=== PATIENT | female | born 1980 | race Caucasian/White ===

== ENCOUNTER 2017-06-21 04:50 | Inpatient (IN) | payer SELFPAY ==
[2017-06-21] VITALS (21 sets, daily range): BP systolic 94–115; BP diastolic 47–78; PULSE 60–92; RESP 16–20; TEMP 36.3–36.7; O2SAT 95–100; BMI 28.5
[2017-06-21] MEDS: Lactated Ringers 1,000 ML 999 ML IV (05:20)
[2017-06-21 05:50] LABS: Hematocrit 34.2 % (37-47); Hemoglobin 11.6 g/dl (12.0-15.0); Mean Corp Hgb Conc 33.9 g/gl (32-36); Mean Corpuscular Hgb 30.4 pg (27.0-32.0); Mean Corpuscular Volume 89.8 fL (81-99); Mean Platelet Vol. 11.6 fl (6.2-12.0); Platelet Count 169 K/mm3 (150-450); Red Blood Count 3.81 M/mm3 (4.2-5.4); White Blood Count 6.9 K/mm3 (4.4-11.0)
[2017-06-21 05:54] LABS: Scan Indicated on CBC? Y/N NO
[2017-06-21 05:57] LABS: Partial Thromboplast Time 29.3 Seconds (24.1-36.2); Prothrombin Time (Protime)PT. 12.9 SECONDS (11.7-14.9)
[2017-06-21] MEDS: Lactated Ringers 1,000 ML 150 ML IV (06:18)
[2017-06-21] MEDS: Sodium Citrate/Citric Acid 30 ML UDC PO (07:08)
[2017-06-21] MEDS: Cefazolin 2 GM in 0.9% Normal Saline 100 ML IV (07:09)
[2017-06-21] MEDS: Oxytocin 30 units/NS 500 ml 30 UNITS/500 ML IV.SOLN 167 UNITS IV (07:45)
--- NOTE | 2017-06-21 08:26 | PCM.OP.BLANK ---
Operative Report Date of Procedure: 06/21/17 Surgeon: Kaz Burns MD, FACOG [employer]ist Dyer: TRIPP Martel Anesthesia: Helena Cowart CRNA Anesthesia: Spinal with Duramorph Pre-op Diagnosis: - -Prior Section, Moderate Oligohydramnios Post-Op Diagnosis: - -Prior Section, Moderate Oligohydramnios Procedure: Repeat Low Transverse Cervical Caesarean Section Findings: Viable female infant with Apgars of 9/9 in an occiput anterior presentation with clear amniotic fluid and normal three-vessel placenta. Indication: This is a 36-year-old who presents for her at 38 6/7 weeks gestation. care has otherwise been uneventful except for recent moderate oligohydramnios. Given this, it was decided to proceed with repeat at this gestation. The patient has been counseled regarding the risk and indications of this procedure including the possibility of bleeding infection and injury to surrounding structures such as bowel bladder. All questions were answered. Procedure: Patient was taken to the operating room where after spinal anesthesia was placed, the patient was prepped and draped in usual sterile fashion and a Marroquin catheter was placed. The abdomen was entered through the patient's prior Pfannenstiel incision and peritoneum was entered bluntly. After developing a bladder flap on the lower uterine segment a low transverse incision was made on the uterus and head was easily delivered onto the operative field the nose mouth and oropharynx were bulb suctioned. Subsequently a viable female infant was born with Apgars of 9/9. The was noted to cry move all extremities vigorously on the operative field. The umbilical cord was doubly clamped and ligated and infant handed to the nursery personnel who were present for the delivery. Placenta was delivered and noted to be 3 vessels and normal. Uterus was exteriorized remaining placental tissue was removed. The uterus was then closed in 2 layers first with running locked Number 1 Vicryl suture followed by a second imbricating layer with Number 1 Vicryl suture. Number 1 Vicryl suture was then used in a horizontal mattress interrupted fashion to affect final hemostasis of the uterine incision line. Normal fallopian tubes and ovaries were visualized and the uterus was returned to the pelvis. Hemostasis was noted and rectus abdominis muscles were reapproximated in the midline with interrupted Number 1 Vicryl suture in a horizontal mattress fashion. Fascia was closed with running Number 1 loop PDS suture. Subcutaneous tissue was closed with running 3-0 Vicryl suture and skin was closed with 4-0 monocryl suture in a running subcuticular fashion. Steri strips, telfa, and tape were placed across the incision. The patient tolerated the procedure well and was taken to the recovery room in satisfactory condition. Sponge, needle, and instrument counts were all reportedly correct. EBL was less than 500 cc. Ancef 2 gms IV was given prior to the procedure. Spicemen to Pathology: None Complications: None
--- NOTE | 2017-06-21 08:30 | DCINST_ITS ---
Discharge Diet: No Restrictions Discharge Activity: May not drive while taking narcotic pain medications., May Shower, May Take a Tub Bath May resume sexual activity in: 4-6 weeks Lifting Restrictions: 20 pounds Additional Activity Instructions:: Nothing in the vagina for 4-6 weeks. You may return to work/school in 6 weeks. Call your doctor if your incision/area has: Continuous Slow Oozing, Sudden Increased Bleeding, Increased Pain/ Swelling, Increased Redness, Foul Smelling Discharge Call your doctor if you observe: Fever of 101 or Higher, Inability to urinate, Inability to have a bowel movement, Using more than one pad per hour Additional Instructions: If you experience any of the following, contact your healthcare provider. * Bleeding that soaks a pad every hour for 2 hours * Unrelieved incision or abdominal pain * Swelling, redness, discharge or bleeding from your incision or episiotomy site * Your incision begins to separate * Problems urinating (including inability to urinate or burning while urinating) . * Visual changes * Severe headache * Flu-like symptoms * Pain or redness in one of both of your breasts * Pain, warmth, tenderness or swelling in your legs, especially the calf area * Frequent nausea and vomiting * Symptoms of depression or anxiety If you experience any of the following, call 911 or go to the nearest Emergency Room. * Chest pain * Problems breathing * Seizure activity * Partial or complete paralysis of a body part, slurred speech, weakness or drooping of the face, or a sudden inability to walk or hold your balance Allergies/Adverse Reactions: Allergies No Known Allergies Allergy (Verified 06/21/17 05:11) Medications to take at Discharge Docusate Sodium [Colace] 100 mg PO BID PRN PRN #60 cap 06/21/17 Oxycodone [Oxyir] 5 - 10 mg PO Q6H PRN PRN 7 Days #25 tab 06/21/17 The following prescriptions were given: Oxycodone [Oxyir] 5 - 10 mg PO Q6H PRN PRN 7 Days #25 tab PRN Reason: Severe Pain () Docusate Sodium [Colace] 100 mg PO BID PRN PRN #60 cap PRN Reason: Constipation Follow-Up: Call to make an appointment with your doctor for an incision check in 1-2 weeks. You will also need a 6 week post- follow up appointment. Please Follow Up With: Kaz Burns MD - [phone] When: Call to make an appointment for an incision check in 2 weeks. Primary Care Physician: Kaz Ruano [Primary Care Provider] -
[2017-06-21] MEDS: Lactated Ringers 1,000 ML 100 ML IV ×2 (09:41→17:51)
--- NOTE | 2017-06-21 10:31 | CPS ---
nursing to start
[2017-06-21] MEDS: Ketorolac 30 MG/ML Syringe IV ×2 (14:03→20:10)
[2017-06-21] MEDS: Cefazolin 1 GM/50 ML BAG IV ×2 (15:07→22:55)
[2017-06-22] VITALS: BP 104/68; PULSE 76; RESP 16; TEMP 37.2; O2SAT 94
[2017-06-22 02:00] VITALS: PULSE 76; RESP 16; O2SAT 94
[2017-06-22] MEDS: Ketorolac 30 MG/ML Syringe IV ×4 (03:24→20:30)
[2017-06-22 04:00] VITALS: BP 96/59; PULSE 62; RESP 16; TEMP 36.6; O2SAT 97
[2017-06-22 05:29] LABS: Hematocrit 32.6 % (37-47); Hemoglobin 10.9 g/dl (12.0-15.0); Mean Corp Hgb Conc 33.4 g/gl (32-36); Mean Corpuscular Hgb 30.5 pg (27.0-32.0); Mean Corpuscular Volume 91.3 fL (81-99); Mean Platelet Vol. 11.2 fl (6.2-12.0); Platelet Count 145 K/mm3 (150-450); RBC Distribution Width SD 45.1 fl (35.1-43.9); Red Blood Count 3.57 M/mm3 (4.2-5.4); Scan Indicated on CBC? Y/N NO; White Blood Count 11.2 K/mm3 (4.4-11.0)
--- NOTE | 2017-06-22 07:28 | PCM.PN.OB ---
Subjective: No specific complaints. Breast feeding. Pain reasonably controlled. Bleeding light. Objective: Afeb VSS. Hgb appropriate. urine output adequate. - Physical Exam General: Alert, Oriented x3, Cooperative, No apparent distress Lungs: Clear to auscultation, Normal air movement Cardiovascular: Regular rate, Regular Rhythm Abdomen: Soft, Non Tender, Non-Distended, - - Fundus firm/nontender. Incision dressing dry Extremities: No edema Neurological: Neuro grossly intact Psych/Mental Status: Normal Affect Comment: Lochia light Vital Signs Temp Pulse Resp BP Pulse Ox 97.9 F 62 16 96/59 L 97 06/22/17 04:00 06/22/17 04:00 06/22/17 04:00 06/22/17 04:00 06/22/17 04:00 Oxygen Delivery Method Room Air Weight: 161 lb 6.054 oz Body Mass Index (BMI) 28.5 Intake and Output for Last 24 Hours 06/20/17 06/21/17 06/22/17 23:59 23:59 23:59 Intake Total 2551 / 2551 1264 / 1264 Output Total 2850 / 2850 1000 / 1000 Balance -299 / -299 264 / 264 Laboratory Tests Past 24 Hrs 06/21/17 06/22/17 05:20 05:15 WBC 11.2 H RBC 3.57 L Hgb 10.9 L Hct 32.6 L MCV 91.3 MCH 30.5 MCHC 33.4 RDW 14.0 RDW Differential 45.1 H Plt Count 145 L MPV 11.2 Blood Type A POSITIVE Antibody Screen NEGATIVE Assessment/Plan Doing well on POD#1. Continue routine PO care.
[2017-06-22 08:00] VITALS: BP 100/63; PULSE 75; RESP 16; TEMP 36.7; O2SAT 95
[2017-06-22] MEDS: 0.9% Saline Lock 10 ML Syringe IV ×4 (09:16→20:31)
[2017-06-22 14:45] VITALS: BP 113/72; PULSE 79; RESP 16; TEMP 36.9; O2SAT 96
[2017-06-22 20:30] VITALS: BP 111/75; PULSE 78; RESP 18; TEMP 36.7
[2017-06-23] MEDS: 0.9% Saline Lock 10 ML Syringe IV ×2 (02:29→02:30)
[2017-06-23] MEDS: Ketorolac 30 MG/ML Syringe IV (02:29)
[2017-06-23 02:30] VITALS: BP 127/79; PULSE 62; RESP 16; TEMP 36.6
--- NOTE | 2017-06-23 08:16 | PCM.PN.OB ---
Subjective: Pain reasonably controlled. Bleeding light. Breast and bottle feeding. Objective: Afeb VSS - Physical Exam General: Alert, Oriented x3, Cooperative, No apparent distress Lungs: Clear to auscultation, Normal air movement Cardiovascular: Regular rate, Regular Rhythm Abdomen: Soft, Non Tender, Non-Distended, - - Incision dressing dry Extremities: No edema, No Calf Tenderness Skin: No rashes Neurological: Neuro grossly intact Psych/Mental Status: Normal Affect Comment: Lochia light Vital Signs Temp Pulse Resp BP Pulse Ox 97.8 F 62 16 127/79 H 96 06/23/17 02:30 18 02:30 06/23/17 02:30 06/23/17 02:30 06/22/17 14:45 Oxygen Delivery Method Room Air Weight: 161 lb 6.054 oz Body Mass Index (BMI) 28.5 Intake and Output for Last 24 Hours 02/14/18 //18 / 23:59 23:59 23:59 Intake Total 2551 / 2551 1264 / 1264 Output Total 2850 / 2850 1750 / 1750 Balance -299 / -299 -486 / -486 Assessment/Plan Doing well on POD#2. Cleared for discharge home today. Home going instructions and warnings given.
--- NOTE | 2017-06-23 08:18 | PCM.DC.SUM ---
Discharge Date and Diagnosis Date of Admission: 06/21/17 Date of Discharge: 06/23/17 - Primary Discharge Diagnosis S/P repeat C/S Hospital Course and Treatment Consultations 06/21/17 05:27 Consult: Anesthesia Routine Comment: Reason For Exam: LABOR Operations: - - section Summary of Care Provided: The patient is a 36 year old F [admitted for C/S. C/S performed without complication. Post operative course unremarkable. Discharged home on POD#2.] Discharge Diet: No Restrictions Discharge Activity: May not drive while taking narcotic pain medications., May Shower, May Take a Tub Bath May resume sexual activity in: 4-6 weeks Additional Activity Instructions:: Nothing in the vagina for 4-6 weeks. You may return to work/school in 6 weeks. Call your doctor if your incision/area has: Continuous Slow Oozing, Sudden Increased Bleeding, Increased Pain/ Swelling, Increased Redness, Foul Smelling Discharge Call your doctor if you observe: Fever of 101 or Higher, Inability to urinate, Inability to have a bowel movement, Using more than one pad per hour Home Medications: Medications to take at Discharge Docusate Sodium [Colace] 100 mg PO BID PRN PRN #60 cap 06/21/17 Oxycodone [Oxyir] 5 - 10 mg PO Q6H PRN PRN 7 Days #25 tab 06/21/17 Following Prescrptions Were Given to Patient: Oxycodone [Oxyir] 5 - 10 mg PO Q6H PRN PRN 7 Days #25 tab PRN Reason: Severe Pain (6-10/10) Docusate Sodium [Colace] 100 mg PO BID PRN PRN #60 cap PRN Reason: Constipation Primary Care Physician: Kaz Ruano [Primary Care Provider] - Please Follow Up With: Kaz Burns MD - [phone] When: Call to make an appointment for an incision check in 2 weeks. Disposition: Home Minutes spent on discharge:: 15 Patient Condition:: Good Meaningful Use Info Meaningful Use Diagnoses (Choose all that apply): None applicable
[2017-06-23 08:30] VITALS: BP 115/81; PULSE 75; RESP 16; TEMP 36.7; O2SAT 98
[2017-06-23] MEDS: oxyCODONE 5 MG Tablet PO (11:21)
--- NOTE | 2017-06-23 12:30 | NURSING ---
baby bands verified by nurse and mother. mother signed baby discharge sheet
== END 2017-06-23 12:35 | disposition home or self-care (01) | DRG 765 ==
PROVIDERS: Admitting Provider Obstetrics & Gynecology; Family Provider Family Medicine; PCP Family Medicine; Visit Provider Obstetrics & Gynecology
DX: O34.219 Maternal care for unspecified type scar from previous cesarean delivery (principal); O41.03X0 Oligohydramnios, third trimester, not applicable or unspecified; Z37.0 Single live birth; Z3A.38 38 weeks gestation of pregnancy
CPT/HCPCS: 85027; 85610; 85730; 86850; 86900; 94762; 99218; J7120; A4216; G0378; J2405

== ENCOUNTER → 2018-09-05 11:11 | Outpatient (CLI) | payer OTHER, SELFPAY ==
[2017-06-21 05:13] VITALS: BMI 28.5
[2018-09-05 18:06] LABS: Chlamydia Trachomatis by PCR Negative (Negative); Neisserai gonorrhoeae by PCR Negative (Negative); Probe Check PASS; Sample Adequacy Control PASS; Specimen Processing Control PASS
[2018-09-07 13:08] LABS: HPV Reflexed? NOT INDICATED
== END ==
PROVIDERS: Family Provider Family Medicine; PCP Family Medicine; Referring Provider Obstetrics & Gynecology; Visit Provider Obstetrics & Gynecology
DX: Z12.4 Encounter for screening for malignant neoplasm of cervix (principal); Z11.3 Encounter for screening for infections with a predominantly sexual mode of transmission
CPT/HCPCS: 87491; 87591; 87624; 88175; G0145

== ENCOUNTER 2019-04-01 05:16 | Inpatient (IN) | payer SELFPAY, OTHER ==
[2017-06-21 05:13] VITALS: BMI 28.5
--- NOTE | 2019-03-31 14:45 | HP.PCM_ITS ---
History and Physical Date of Admission: 04/01/19 [facility] [place] ANTEPARTUM RECORD - HISTORY AND PHYSICAL (03/31/2019) Name: PILO CISSE History of This : This is a 38-year-old patient who presents for her fifth section. She also desires permanent sterilization. care has otherwise been uneventful. 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 : 1980 Age: 38 Address: [address] [place] [address] Phone: H) [phone] (O) [phone] Insurance Carrier: [facility] [phone] Emergency Contact: NONE ...................................................................... Final VAIBHAV: 04/07/19 By Ultrasound: 10 weeks 2 days PARITY: (G-Total Pregnancies P-Fullterm,Premature,Induced AB,Spont AB, Ectopics, Multiple,Living) VAIBHAV CONFIRMATION: By LMP: 07/01/18 GBS: Original Ordering Provider: Fuad KANG Culture Group B Beta Streptococcus is not isolated. 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 Children Name(s) - Derrek & Jyothi(Twins 2009), Keren(2011), Valreio(2013), Gissell(2017) PRIOR DELIVERY HISTORY DEL DATE GEST LAB WT LB WT OZ TYPE ANES LABOR TX 09 May 19 39 0 6 2 Vag Epidural No 10 May 21 39 0 8 1 C-Sec Epidural No 10 Oct 10 36 12 4 8 C-Sec Epidural No 10 Oct 15 36 12 5 6 C-Sec Epidural No 14 Jun 25 38 0 7 9 C-Sec Spinal No ANTEPARTUM FLOW CHART VISIT RTC FU F F AR U U DATE WK MD WKS HT PN HR M SS BP ED WT AR GL D EF ST __ ____ ___ __ __ ___ __ __ __ ___ __ __ __ ___ __ Mar JMW 3 38 + + 120/64 sl 162 - - Mar JMW 1 37 + + 110/70 tr 160 tr - 05 Mar JMW 1 36 + + 98/58 0 159 - tr 22 Feb JMW 2 34 + + 108/66 sl 157 tr - 01 Mar 07 JMW 3 31 + + 120/68 0 155 - - 10 Feb 02 JMW 3 28 + + 106/56 0 155 - - 20 Dec 30 JMW 3 25 + + 110/68 0 151 - - 16 Nov 24 JMW 4 20 + + 100/62 0 148 - - 11 Oct 20 JMW 4 15 + ? 98/58 0 146 - - 07 September 14 JMW 4 U+ + 118/78 0 145 - - ANTEPARTUM NOTE(S): Mar 26 2019: Doing Well, see progress note Mar 19 2019: Feeling Well, Good FM Mar 12 2019: Feeling Well,FM Noted Feb 26 2019: Doing Well Feb 05 2019: Doing Well, Good FM Jan 15 2019: Doing Well, 1hrGTT,CBC Dec 25 2018: Doing well, Glucola given Nov 20 2018: Sono Today,Good FM,Feeling Well Oct 16 2018: Nausea better,fatigue continues,declines AFP Sep 11 2018: Sono and NOB Today,Nausea Better COMPREHENSIVE ANTEPARTUM NOTE(S): Mar 26 2019: Pilo presents for her PNV. She is reporting +FM and only slight intermittent swelling in her lower extremitites. She is sched for a R/C-sec tion/Bilateral partial salpingectomy 04/01/19 at [facility]. Procedure reviewed, consents signed, and Clorhexadine wash given with instructions. JT Feb 26 2019: Pt wants tubal with R/ and Federal Tubal consent signed. LARC form signed as declined. JT Sep 11 2018: Pilo presented to the office for her Limited OB u/s, PNV, and NOB nurse visit accompanied by her Collin who is very supportive. Pt and spouse are very excited for this . She is a G 5, P 5 with a hx of 4 prior C-sections and one set of twins. Pt is planning to deliver via R/ at [facility] per Dr Agrawal. Pt relates she is really considering a tubal as well. Genetics screening questionnaire completed and pt notes no hx of genetic abnormality on her or FOB's side. AFP testing discussed, consent reviewed, de clined, and signed as such. Pt is taking a multiple vitamin/mineral/whole foods regimen which she has been taking for yrs and plans to continue this instead of switching to PNV's. She did check to confirm it has 1mg of Folic Acid. Diet, Food safety, exercise, and Wt Gain reviewed and informational handouts given. I recommended a smaller meal with a light snack in between and trying to incorporate Protein and complex carbs in each.Pt has some mild nausea, but sts she is ok and does not want meds for this at this time. Recommend keeping wt gain to a maximum 20-25lbs. Also advised a minimum of 1gal H20/day and limit caffeine to 8-10oz/day. Warning signs in reviewed and Major body changes handout given and reviewed. Pt denies any use of alcohol, Nicotine, or recreational drugs. She has had chickenpox. checklist completed. Detailed history updated. Standard zohra't types reviewed and pt is considering the 20wk u/s with details regarding pym't given. labs drawn. No questions or concerns voiced. Visit was approx 35min. JT NEW Sep 04 2018: Pilo presents for her Missed Menses. She is a G 5, P 5 with hx of twins. She has had 4prior C-sections and is planning to deliver via R/C- section at [facility] per Dr Agrawal. +UPT in office today. LMP 07/01/18, VAIBHAV by LMP 04/07. She is taking OTC Prenatals. Pt has constant nausea and occassional vomitting. NOB packet given. No questions or concerns voiced. JT Sep 04 2019: ok REVIEW OF SYSTEMS: GENERAL - Denies fever, or chills SKIN - Denies rash, new skin lesions, or change in moles EYES - Denies blurred vision, or change in visual acuity EARS - Denies ear pain, or difficulty hearing NOSE - Denies nasal congestion, discharge, or bleeding MOUTH - Denies sore throat, or difficulty swallowing NECK - Denies pain or swelling RESPIRATORY - Denies shortness of breath, cough, wheezing CARDIOVASCULAR - Denies palpitations, chest pain, orthopnea, PND, peripheral edema, syncope or claudication GASTROINTESTINAL - Denies nausea, vomiting, diarrhea, constipation, Denies abdominal pain, melena and or bright red blood GENITOURINARY - Denies dysuria, frequency of urination, urgency, or hesitancy MUSCULOSKELETAL - Denies joint or muscle pain, or back pain NEUROLOGICAL - Denies localized numbness, weakness, or tingling PSYCHIATRIC - Denies depression, anxiety, substance abuse or suicide attempts ENDOCRINE - Denies heat or cold intolerance, weight loss or gain, increasing thirst HEMATO-IMMUNOLOGIC - Denies easy bruising, bleeding, oral ulcerations or recurrent infections GENETICS SCREENING: Age 35+ years: Yes Thalassemia: No Neural Tube Defect: No Down Syndrome: No SATISH-SACHS: No Sickle Cell Disease: No Hemophilia: No Musc. Dystrophy: No Cystic Fibrosis: No-declines screening [place] Chorea: No Mental Retardation: No Fragile X: No Other genetic: No Other defects: No SABs/still births: No Drugs since LMP: No INFECTION HISTORY: High risk AIDS: No High risk Hepatitis: No Exposed to TB: No Exposed to Herpes: No Rash/viral illness since LMP: No History of STD: No MENSTRUAL HISTORY: *Menses Amount/Duration: 5 daysMenarche (Age Onset): 15* PAST SUMMARY: PARITY: 1. Total Pregnancies............ 5 2. Full Term Pregnancies........ 4 3. Premature.................... 0 4. Abortions - Induced.......... 0 5. Abortions - Spontaneous...... 0 6. Ectopics..................... 0 7. Multiple Births.............. 1 8. Living Children.............. 5 PAST #1: Date of :.................. 10/15/09 Gestation Weeks:................ 36 Length of labor(hours):......... 12 Sex:............................ M Weight-lbs:............... 4 Weight-oz:................ 8 Type of Delivery:............... C-Sect Type of Anesthesia:............. Epidural Place of Delivery:.............. [facility] Treatment of Labor?:.... No Comment: TWINS PAST #2: Date of :.................. 10/15/09 Gestation Weeks:................ 36 Length of labor(hours):......... 12 Sex:............................ F Weight-lbs:............... 5 Weight-oz:................ 6 Type of Delivery:............... C-Sect Type of Anesthesia:............. Epidural Place of Delivery:.............. [facility] Treatment of Labor?:.... No Comment: TWIN PAST #3: Date of :.................. 05/16/11 Gestation Weeks:................ 39 Length of labor(hours):......... 0 Sex:............................ F Weight-lbs:............... 6 Weight-oz:................ 2 Type of Delivery:............... Vag Type of Anesthesia:............. Epidural Place of Delivery:.............. [facility] Treatment of Labor?:.... No Comment: PAST #4: Date of :.................. 05/17/13 Gestation Weeks:................ 39 Length of labor(hours):......... 0 Sex:............................ M Weight-lbs:............... 8 Weight-oz:................ 1 Type of Delivery:............... C-Sect Type of Anesthesia:............. Epidural Place of Delivery:.............. [facility] Treatment of Labor?:.... No Comment: PAST #5: Date of :.................. 06/21/17 Gestation Weeks:................ 38 Length of labor(hours):......... 0 Sex:............................ F Weight-lbs:............... 7 Weight-oz:................ 9 Type of Delivery:............... C-Sect Type of Anesthesia:............. Spinal Place of Delivery:.............. [facility] Treatment of Labor?:.... No Comment: PHYSICAL EXAMINATION General Appearence: 38 yo female in no acute distress Vital Signs: AF, VSS Heart: RRR without rubs or gallops Lungs: CTA x 2 Breasts: deferred Abdomen: gravid Pelvis: Cervix: Not examined Presentation: cephalic Fetus: Size: AGA Movement: present Heart: present Labs for : PILO CISSE since 07/11/2018 ORDER DATEIN DESCRIPTION VALUE UNITS RANGE A+ COMMENT GLUCOSE CHALLENGE 50GM 1 HOUR 01/15/19 NOTE Original Ordering Provider: FUAD AGRAWAL GLUCOSE CHALLENGE 50GM 1 HOUR GLUCOSE CHALLENGE 50 GMS 1 HOUR GLUCOSE 1HR 134 mg/dl 70 - 140 Reviewed by FUAD CBC + DIFF 01/15/19 NOTE Original Ordering Provider: FUAD AGRAWAL CBC + DIFF CBC-COMPLETE BLOOD COUNT WBC 6.8 x 10EE3/UL 4.5 - 10.8 RBC 3.51 x 10EE6/UL 4.10 - 5.30 L HEMOGLOBIN 10.8 g/dl 12.0 - 16.0 L HEMATOCRIT 31.2 % 34.0 - 46.0 L MCV 89 fl 80 - 99 MCH 31 pg 27 - 33 MCHC 35 X10 3 32 - 36 RDW/CV 12.9 % 12.0 - 15.6 PLATELET 194 x10EE3/UL 150 - 450 MPV 9.9 fl 6.6 - 10.5 AUTOMATED DIFFERENTIAL NEUT % 70.9 % 46.0 - 76.0 LYMPH % 21.1 % 20.0 - 45.0 MONOS % 6.5 % 0.0 - 10.0 EO % 0.4 % 0.0 - 7.0 BASO % 1.1 % 0.0 - 2.0 LYMPH # 1.40 x10EE3/UL 0.80 - 2.80 NEUT # 4.80 x10EE3/UL 1.50 - 7.10 MONO # 0.40 x10EE3/UL 0.20 - 1.00 EO # 0.00 x10EE3/UL 0.00 - 0.50 BASO # 0.10 x10EE3/UL 0.00 - 0.10 MANUAL DIFF N/A MORPHOLOGY N/A Reviewed by FUAD LEBLANC 3 [CCL] 09/11/18 NOTE Original Ordering Provider: FUAD LEBLANC 3 [CCL] _DEANA 3 [CCL]_ DEANA 3 [CCL] Reported: 09/13/2018 14:12 Status=F TEST RESULT FLAG RANGE UNITS RPR Non Reactive NR 09/13/18.[email or web address] Hepatitis B Surf. Ag Negative NEGAT 09/13/18.[email or web address] Rubella IgG Ab, Qual Positive A NEGAT 09/13/18.[email or web address] Sample is considered positive for IgG antibodies to rubella virus. A positive result indicates previous exposure to Rubella virus or vaccination. Rubella IgG Ab 11.30 Index 09/13/18.[email or web address] Value Index values are interpreted as follows: Negative specimens <0.90 Equivocol specimens 0.90 to 0.99 Positive specimens >0.99 The magnitude of the measured result is not indicative of the amount [place] [address] Lidia Fritz M.D. [id number] Reviewed by FUAD HEPATITIS C AB IA W/CONFIRM [CCL] 09/11/18 NOTE Original Ordering Provider: FUAD AGRAWAL HEPATITIS C AB IA W/CONFIRM [C _HEPATITIS C AB IA W/CONFIRM [CCL]_ HEPATITIS C AB IA W/CONFIRM [CCL] Reported: 09/13/2018 14:12 Status=F TEST RESULT FLAG RANGE UNITS Hepatitis C Ab IA Negative NEGAT 09/13/[email or web address] [facility] [address] [place] [address] Lidia Fritz M.D. [id number] Reviewed by FUAD HERNANDEZ TYPE 09/11/18 NOTE Original Ordering Provider: FUAD HERNANDEZ TYPE TYPE, Rh, AND SCREEN ABO A RH POS ANTIBODY SCR negative Reviewed by GARY TSH 09/11/18 NOTE Original Ordering Provider: FUAD AGRAWAL TSH 1.99 uIU/ml 0.34 - 5.60 Reviewed by FUAD URINALYSIS 09/11/18 NOTE Original Ordering Provider: FUAD AGRAWAL URINALYSIS URINALYSIS SPECIMEN TYPE Clean catch COLOR yellow NORMAL: YELLOW CLARITY clear NORMAL: CLEAR PH 6.5 NORMAL: 5.0-8.0 PROTEIN NEG NORMAL: NEGATIVE GLUCOSE NORM NORMAL: NORMAL KETONE NEG NORMAL: NEGATIVE BILIRUBIN NEG NORMAL: NEGATIVE BLOOD NEG NORMAL: NEGATIVE UROBILINOG NORM NORMAL: NORMAL SP GRAVITY 1.015 NORMAL: 1.010-1.030 NITRITE NEG NORMAL: NEGATIVE LEUKOCYTES NEGw NORMAL: NEGATIVE MICROSCOPIC NOT INDICATED Reviewed by FUAD CBC + DIFF 09/11/18w NOTE Original Ordering Provider: FUAD AGRAWAL CBC + DIFF CBC-COMPLETE BLOOD COUNT WBC 6.7 x 10EE3/UL 4.5 - 10.8 RBC 3.99 x 10EE6/UL 4.10 - 5.30 L HEMOGLOBIN 12.4 g/dl 12.0 - 16.0 HEMATOCRIT 35.0 % 34.0 - 46.0 MCV 88 fl 80 - 99 MCH 31 pg 27 - 33 MCHC 35 X10 3 32 - 36 RDW/CV 12.8 % 12.0 - 15.6 PLATELET 177 x10EE3/UL 150 - 450 MPV 9.5 fl 6.6 - 10.5 AUTOMATED DIFFERENTIAL NEUT %w 68.3 % 46.0 - 76.0 LYMPH % 23.1 % 20.0 - 45.0 MONOS % 7.3 % 0.0 - 10.0 EO % 0.2 % 0.0 - 7.0 BASO % 1.1 % 0.0 - 2.0 LYMPH # 1.50 x10EE3/UL 0.80 - 2.80 NEUT # 4.60 x10EE3/UL 1.50 - 7.10 MONO # 0.50 x10EE3/UL 0.20 - 1.00 EO # 0.00 x10EE3/UL 0.00 - 0.50 BASO # 0.10 x10EE3/UL 0.00 - 0.10 MANUAL DIFF N/A MORPHOLOGY N/A Reviewed by Mandi Initial OB Labs 09/11/18 HIV Test negative (Scanned) Negative Reviewed by FUAD PAP IG W/REFLEX HR HPV APTIMA 09/04/18 NOTE Original Ordering Provider: Fuad Agrawal DIAGN . NEGATIVE FOR INTRAEPITHELIAL LESION OR MALIGNANCY. ADEQ . Satisfactory for evaluation. Endocervical and/or squamous metaplastic cells (endocervical component) are present. PERFORM . Jonah Serrano Delinquency Prevention Social Worker (ASCP) TEST METHOD . This liquid based ThinPrep(R) pap test was screened with the use of an image guided system. COMM . . PAPSMR . The Pap smear is a screening test designed to aid in the detection of premalignant and malignant conditions of the uterine cervix. It is not a diagnostic procedure and should not be used as the sole means of detecting cervical cancer. Both false-positive and false-negative reports do occur. HPV RFLX . The HPV DNA reflex criteria were not met with this specimen result therefore, no HPV testing was performed. Performed at: [address] [id number] Office Support Clerk: Radha Uriarte MD, Phone: [phone] Reviewed by GARY Reviewed by GARY Reviewed by Carey CT/JAVIER [facility] BY PCR 09/04/18 NOTE Original Ordering Provider: Fu[facility]rawal [facility] PCR Negative Negative NG BY PCR Negative Negative Reviewed by FUAD Impression /Plan: 39-week intrauterine for repeat section and tubal with Filshie clips. Discussed risks, benefits, and alternatives and all questions were answered. Preparations in progress for delivery.
[2019-04-01] VITALS (22 sets, daily range): BP systolic 101–127; BP diastolic 47–86; PULSE 62–100; RESP 10–18; TEMP 36–36.9; O2SAT 97–100; BMI 28.1
[2019-04-01] MEDS: Lactated Ringers 1,000 ML 999 ML IV (05:30)
[2019-04-01 05:56] LABS: Absolute Lymphocyte Count 1.68 X10^3/uL (0.83-4.51); Absolute Neutrophil Count 5.8 X10^3/uL (2.0-7.7); Basophil# 0.01 X10^3/uL; Basophil% 0.1 % (0-1); Eosinophil# 0.02 X10^3/uL; Eosinophils% 0.2 % (0-5); Hematocrit 37.3 % (37-47); Hemoglobin 12.4 g/dL (12.0-15.0); Lymphocyte # 1.68 X10^3/ul (4.0); Lymphocyte % 20.7 % (19-41); Mean Corp Hgb Conc 33.2 g/dL (32-36); Mean Corpuscular Hgb 29.8 pg (27.0-32.0); Mean Corpuscular Volume 89.7 fL (81-99); Mean Platelet Vol. 10.9 fl (6.2-12.0); Monocyte% 6.2 % (0-10); NRBC Flagged by Analyzer 0 % (0-5); Neutrophil # 5.84 X10^3/uL (2.7-7.7); Neutrophil % 72.1 % (47-70); Platelet Count 190 K/mm3 (150-450); RBC Distribution Width CV 14.1 % (11.6-14.6); RBC Distribution Width SD 45.6 fl (35.1-43.9); Red Blood Count 4.16 M/mm3 (4.2-5.4); White Blood Count 8.1 K/mm3 (4.4-11.0)
[2019-04-01] MEDS: Lactated Ringers 1,000 ML 150 ML IV (06:32)
[2019-04-01] MEDS: Sodium Citrate/Citric Acid 30 ML UDC PO (07:11)
[2019-04-01] MEDS: Cefazolin 2 GM in 0.9% Normal Saline 100 ML IV (07:17)
--- NOTE | 2019-04-01 08:24 | OP.PCM_ITS ---
Delivery Classification: Scheduled Final VAIBHAV: 04/07/19 Final VAIBHAV Source: US <20 weeks Gestational age: 39 Weeks and 1 Days gravity flow irrigator: Sabiha Estrada Type of Anesthesia:: Spinal - With Duramorph Date of Procedure: 04/01/19 Pre-Operative Diagnosis: Prior Section, Desires Permanent Sterilization Post-Operative Diagnosis: Prior Section, Desires Permanent Sterilization Description of Procedure: Surgeon: Kaz Burns MD, FACOG Procedure: Repeat Low Transverse Cervical Caesarean Section And Bilateral Tubal Occlusion with Filshie Clips Findings: Viable female infant with Apgars 8/9 in the anterior presentation with clear amniotic fluid and normal three-vessel placenta. Cord was around the neck x2 tight. Indication: This is a 38-year-old who presents for her fifth at 39+ weeks gestation. care has otherwise been uneventful. The patient has been counseled regarding the risk and indications of this procedure including the possibility of bleeding infection and injury to surrounding structures such as bowel bladder. She also desires permanent sterilization. The patient has been counseled regarding the risk and indications of this procedure including the permanent nature of the procedure, the failure rate of 1 to 2%, and the availability of other nonpermanent control options. All questions were answered. Procedure: Patient was taken to the operating room where after spinal anesthesia was placed, the patient was prepped and draped in usual sterile fashion and a Marroquin catheter was placed. The abdomen was entered through the patient's prior Pfannenstiel incision and peritoneum was entered bluntly. After developing a bladder flap on the lower uterine segment a low transverse incision was made on the uterus and head was easily delivered onto the operative field the nose mouth and oropharynx were bulb suctioned. Subsequently a viable female infant was born with Apgars of 8/9. The was noted to cry move all extremities vigorously on the operative field. The umbilical cord was doubly clamped and ligated and handed to the nursery personnel who were present for the delivery. Placenta was delivered and noted to be 3 vessels and normal. Uterus was exteriorized and remaining placental tissue was removed. The uterus was then closed in 2 layers first with running locked 0 Vicryl suture followed by a second imbricating layer with 0 Vicryl suture. 0 Vicryl suture was then used in a horizontal mattress interrupted fashion to affect final hemostasis of the uterine incision line. Normal fallopian tubes were visualized and Filshie clips placed approximately 2 cm from the uterine fundus on each fallopian tube. Normal ovaries were visualized and the uterus was returned to the pelvis. Hemostasis was noted and rectus abdominis muscles were reapproximated in the midline with interrupted Number 0 Vicryl suture in a horizontal mattress fashion. Fascia was closed with running Number 1 PDS Strata fix suture. Subcutaneous tissue was irrigated with copious amounts of saline solution and then closed with running 3-0 Vicryl suture. Skin was closed with 4-0 monocryl suture in a running subcuticular fashion. Steri strips and Mepilex were placed across the incision. The patient tolerated the procedure well and was taken to the recovery room in satisfactory condition. Sponge, needle, and instrument counts were all reportedly correct. EBL was less than 500 cc. Ancef 2 gms IV was given prior to the procedure. Spicemen to Pathology: None Complications: None Amniotic Fluid Description: Clear Placenta Disposition: [facility] Drain: Marroquin to straight drain Cord Entanglement: Around neck x 2, tight Cord Vessel Description: 3 Vessels Esitmated Blood Loss (ml): Less than Gender: Female (1 minute): 8 (5 minute): 9 Antibiotic Given: Ancef 2 grams IV x1 Pt instructed on risks of surgery: Bleeding, Infection, Failure Rate of 1 to 2%, Injury to surrounding structure(s) including bowel and bladder, Availability of other non-permanent control options Complications: None - Admit VTE Documentation VTE Present on Admission: Yes VTE Mechan Device Prophylaxis: SCD's VTE Pharm Prophylaxis ordered?: Yes
--- NOTE | 2019-04-01 08:35 | DCINST_ITS ---
Discharge Diet: No Restrictions Discharge Activity: May not drive while taking narcotic pain medications., May Shower, May Take a Tub Bath May resume sexual activity in: 4-6 weeks Lifting Restrictions: 20 pounds Additional Activity Instructions:: Nothing in the vagina for 4-6 weeks. You may return to work/school in 6 weeks. Call your doctor if your incision/area has: Continuous Slow Oozing, Sudden Increased Bleeding, Increased Pain/ Swelling, Increased Redness, Foul Smelling Discharge Call your doctor if you observe: Fever of 101 or Higher, Inability to urinate, Inability to have a bowel movement, Using more than one pad per hour Additional Instructions: If you experience any of the following, contact your healthcare provider. * Bleeding that soaks a pad every hour for 2 hours * Unrelieved incision or abdominal pain * Swelling, redness, discharge or bleeding from your incision or episiotomy site * Your incision begins to separate * Problems urinating (including inability to urinate or burning while urinating). * Visual changes * Severe headache * Flu-like symptoms * Pain or redness in one of both of your breasts * Pain, warmth, tenderness or swelling in your legs, especially the calf area * Frequent nausea and vomiting * Symptoms of depression or anxiety If you experience any of the following, call 911 or go to the nearest Emergency Room. * Chest pain * Problems breathing * Seizure activity * Partial or complete paralysis of a body part, slurred speech, weakness or drooping of the face, or a sudden inability to walk or hold your balance Allergies/Adverse Reactions: Allergies No Known Allergies Allergy (Verified 04/01/19 05:32) Medications to take at Discharge Docusate Sodium [Colace] 100 mg PO BID PRN PRN #60 cap 04/01/19 Oxycodone [Oxyir] 5 mg PO Q6H PRN PRN 7 Days #20 tab 04/01/19 The following prescriptions were given: Docusate Sodium [Colace] 100 mg PO BID PRN PRN #60 cap PRN Reason: Constipation Prescription Printed Oxycodone [Oxyir] 5 mg PO Q6H PRN PRN 7 Days #20 tab PRN Reason: Pain Score 6-10/10 Prescription Printed Follow-Up: Call to make an appointment with your doctor for an incision check in 1-2 weeks. You will also need a 6 week post- follow up appointment. Test results from this visit will be discussed in further detail at your follow- up appointment, if applicable. Please Follow Up With: Kaz Burns MD - [phone] When: Call to make an appointment for an incision check in 2 weeks. Primary Care Physician: Kaz Ruano MD [Primary Care Provider] -
[2019-04-01] MEDS: Oxytocin 30 units/NS 500 ml 30 UNITS/500 ML IV.SOLN 167 UNITS IV (08:56)
[2019-04-01] MEDS: Lactated Ringers 1,000 ML 100 ML IV (12:02)
[2019-04-01] MEDS: Methylergonovine 0.2 MG/ML Ampul IM (12:56)
[2019-04-01] MEDS: Ketorolac 30 MG/ML Syringe IV ×2 (14:25→21:30)
[2019-04-01] MEDS: Cefazolin 1 GM/50 ML BAG IV ×2 (15:15→23:22)
[2019-04-01] MEDS: Enoxaparin 30 MG/0.3 ML Syringe SC (18:05)
--- NOTE | 2019-04-01 20:30 | NURSING ---
Called to patient room. Patient sitting on toilet. Patient reports that voided and then went to wash her hands when she felt a clot pass. Patient reports that she sat back down and noticed a softball size clot and called for help. Assisted patient in cleaning up and back to bed. Blood pressure and pulse WNL and fundus 2 below, firm, midline. No further bleeding. Patient denies lightheadedness or dizziness. Will continue to monitor. Patient educated on clots and appropriate bleeding. Patient verbalizes understanding.
[2019-04-01] MEDS: 0.9% Saline Lock 10 ML Syringe IV (21:30)
[2019-04-02] VITALS (9 sets, daily range): BP systolic 106–116; BP diastolic 64–72; PULSE 63–97; RESP 14–18; TEMP 36.4–36.8; O2SAT 98–99
[2019-04-02] MEDS: Ketorolac 30 MG/ML Syringe IV ×3 (03:46→18:22)
[2019-04-02] MEDS: 0.9% Saline Lock 10 ML Syringe IV ×2 (03:47→09:03)
[2019-04-02 04:51] LABS: Hematocrit 30.1 % (37-47); Hemoglobin 9.9 g/dL (12.0-15.0); Mean Corp Hgb Conc 32.9 g/dL (32-36); Mean Corpuscular Hgb 29.8 pg (27.0-32.0); Mean Corpuscular Volume 90.7 fL (81-99); Mean Platelet Vol. 11.1 fl (6.2-12.0); Platelet Count 187 K/mm3 (150-450); RBC Distribution Width CV 14.5 % (11.6-14.6); RBC Distribution Width SD 47.3 fl (35.1-43.9); Red Blood Count 3.32 M/mm3 (4.2-5.4)
--- NOTE | 2019-04-02 08:25 | PN.OBGYN_ITS ---
Subjective: Feeling well, states pain is now a 0/10. Passing flatus, but denies BM. Objective: POD #1 Sitting supine in bed. Pain 0/10. Fundus u/1. Bottle feeding female. Lochia moderate rubra. SCDs on while in bed. Encouraged ambulation. - Physical Exam Vitals/I&O's: Vital Signs Temp Pulse Resp BP Pulse Ox 97.9 F 78 14 113/65 98 04/02/19 07:40 04/02/19 07:40 04/02/19 07:40 04/02/19 07:40 04/02/19 07:40 Oxygen Delivery Method Room Air Weight: 72.121 kg Body Mass Index (BMI) 28.1 Intake and Output for Last 24 Hours 03/31/19 04/01/19 04/02/19 23:59 23:59 23:59 Intake Total 3388.33 / 3388.33 50 / 50 Output Total 1550 / 1550 500 / 500 Balance 1838.33 / 1838.33 -450 / -450 General: Alert, Oriented x3, Cooperative HEENT: Atraumatic, PERRLA, EOMI, Normocephalic Neck: Supple, No JVD, Negative Carotid Bruits Lungs: Clear to auscultation, Normal air movement Cardiovascular: Regular rate, No murmurs Abdomen: Bowel Sounds Present, Soft, Non Tender, Passing Flatus, - - Fundus u/1 Extremities: No edema, Capillary Refill Less than 3 Seconds Skin: No rashes, No breakdown, Incision - dressing CDI with one small area circled from yesterday, no new discharge noted Musculoskeletal: No Tenderness to Palpation of Joints or Extremities Neurological: Cranial nerves II-XII grossly intact Psych/Mental Status: Normal Affect, Appropriate Laboratory Results 04/02/19 04:30: WBC 13.0 H, RBC 3.32 L, Hgb 9.9 L, Hct 30.1 L, MCV 90.7, MCH 29.8, MCHC 32.9, RDW Std Deviation 47.3 H, RDW Coeff of Torey 14.5, Plt Count 187, MPV 11.1 Current Medications Acetaminophen (Tylenol) 1,000 mg PO Q8H PRN PRN Reason: Pain Score 1-3/10 Bisacodyl (Dulcolax) 10 mg RECTAL UD PRN PRN Reason: If no BM Hydrocortisone (Hytone) 1 applic TOPICAL TID PRN PRN; Protocol PRN Reason: Discomfort Lactated Ringer's () 1,000 mls @ 100 mls/hr IV .Q10H [facility] [place] Last Admin: 04/02/19 05:57 Dose: Not Given Documented by: Naloxone HCl 4 mg/ Dextrose 504 mls @ 0 mls/hr IV .Q0M PRN; Protocol PRN Reason: To maintain Resp. rate >10 Ibuprofen (Motrin) 600 mg PO Q6H PRN PRN PRN Reason: Pain Score 1-3/10 Ketorolac Tromethamine (Toradol) 30 mg IV Q6H [facility] [place] Stop: 04/03/19 08:01 Last Admin: 04/02/19 03:46 Dose: 30 mg Documented by: Methylergonovine Maleate (Methergine) 0.2 mg IM X1 PRN PRN Reason: Uterine Atony Last Admin: 04/01/19 12:56 Dose: 0.2 mg Documented by: Naloxone HCl (Narcan) 0.02 mg IV Q1M PRN PRN Reason: RR <10 and pt unresponsive Ondansetron HCl (Zofran) 4 mg IV Q4H PRN PRN PRN Reason: Nausea Oxycodone HCl (Oxyir) 5 - 10 mg PO Q4H PRN PRN PRN Reason: Pain Score 4-10/10 Prochlorperazine Edisylate (Compazine Iv) 10 mg IV Q6H PRN PRN PRN Reason: NAUSEA Senna/Docusate Sodium (Senokot-S, Lisa-Colace) 0 tablet PO DAILY PRN PRN Reason: Constipation Simethicone (Mylicon) 80 mg PO PCHS PRN PRN Reason: Indigestion/stomach pain Sodium Chloride () 5 - 15 ml IV UD PRN PRN Reason: SALINE FLUSH Last Admin: 04/02/19 03:47 Dose: 10 ml Documented by: Medical Necessity - Tobacco Use Smoking Status: Never smoker Assessment/Plan A: POD #1 Repeat with BTL P: Discussed not having a BM yet and encouraged ambulation Educated on returning for a 2 week incision check and 6 week check To continue oral medication for pain as needed Would like to discharge tomorrow of POD #2, with discuss with attending Dr. Rashel rosa
[2019-04-02] MEDS: Acetaminophen 500 MG Tablet 1000 MG PO (14:54)
[2019-04-03] MEDS: 0.9% Saline Lock 10 ML Syringe IV (01:10)
[2019-04-03] MEDS: Ketorolac 30 MG/ML Syringe IV (01:15)
[2019-04-03 01:30] VITALS: BP 120/80; PULSE 84; RESP 15; TEMP 36.6
[2019-04-03] MEDS: Ibuprofen 600 MG Tablet PO ×2 (06:40→12:47)
[2019-04-03 07:52] VITALS: BP 120/80; PULSE 76; RESP 16; TEMP 36.4
--- NOTE | 2019-04-03 09:20 | PCM.PN.OB ---
Subjective: Patient without complaints. Tolerating diet well. Positive flatus. Minimal vaginal bleeding. Ready to go home today. - Physical Exam Vitals/I&O's: Vital Signs Temp Pulse Resp BP Pulse Ox 97.6 F L 76 16 120/80 99 04/03/19 07:52 04/03/19 07:52 04/03/19 07:52 04/03/19 07:52 04/02/19 20:13 Oxygen Delivery Method Room Air Weight: 159 lb Body Mass Index (BMI) 28.1 Intake and Output for Last 24 Hours 04/01/19 04/02/19 04/03/19 23:59 23:59 23:59 Intake Total 3388.33 / 3388.33 50 / 50 Output Total 1550 / 1550 500 / 500 Balance 1838.33 / 1838.33 -450 / -450 Current Medications Acetaminophen (Tylenol) 1,000 mg PO Q8H PRN PRN Reason: Pain Score 1-3/10 Last Admin: 04/02/19 14:54 Dose: 1,000 mg Documented by: Bisacodyl (Dulcolax) 10 mg RECTAL UD PRN PRN Reason: If no BM Hydrocortisone (Hytone) 1 applic TOPICAL TID PRN PRN; Protocol PRN Reason: Discomfort Naloxone HCl 4 mg/ Dextrose 504 mls @ 0 mls/hr IV .Q0M PRN; Protocol PRN Reason: To maintain Resp. rate >10 Ibuprofen (Motrin) 600 mg PO Q6H PRN PRN PRN Reason: Pain Score 1-3/10 Last Admin: 04/03/19 06:40 Dose: 600 mg Documented by: Methylergonovine Maleate (Methergine) 0.2 mg IM X1 PRN PRN Reason: Uterine Atony Last Admin: 04/01/19 12:56 Dose: 0.2 mg Documented by: Naloxone HCl (Narcan) 0.02 mg IV Q1M PRN PRN Reason: RR <10 and pt unresponsive Ondansetron HCl (Zofran) 4 mg IV Q4H PRN PRN PRN Reason: Nausea Oxycodone HCl (Oxyir) 5 - 10 mg PO Q4H PRN PRN PRN Reason: Pain Score 4-10/10 Prochlorperazine Edisylate (Compazine Iv) 10 mg IV Q6H PRN PRN PRN Reason: NAUSEA Senna/Docusate Sodium (Senokot-S, Lisa-Colace) 0 tablet PO DAILY PRN PRN Reason: Constipation Simethicone (Mylicon) 80 mg PO PCHS PRN PRN Reason: Indigestion/stomach pain Sodium Chloride () 5 - 15 ml IV UD PRN PRN Reason: SALINE FLUSH Last Admin: 04/03/19 01:10 Dose: 15 ml Documented by: Medical Necessity - Tobacco Use Smoking Status: Never smoker Assessment/Plan Doing well postoperative day #1 status post repeat and tubal ligation with Filshie clips. Will release to home with routine instructions.
[2019-04-03] MEDS: Acetaminophen 500 MG Tablet 1000 MG PO (10:33)
[2019-04-03 13:15] VITALS: BP 119/80; PULSE 101; RESP 16; TEMP 36.4
== END 2019-04-03 13:15 | disposition home or self-care (01) | DRG 785 ==
PROVIDERS: Admitting Provider Obstetrics & Gynecology; Family Provider Family Medicine; PCP Family Medicine; Referring Provider Obstetrics & Gynecology; Visit Provider Obstetrics & Gynecology
PROC: 10D00Z1 Extraction of Products of Conception, Low, Open Approach (ICD-10-PCS; CPT 59514; principal; 2019-04-01 07:15)
DX: O65.5 Obstructed labor due to abnormality of maternal pelvic organs (principal); O34.211 Maternal care for low transverse scar from previous cesarean delivery; O69.1XX0 Labor and delivery complicated by cord around neck, with compression, not applicable or unspecified; Z3A.39 39 weeks gestation of pregnancy; Z37.0 Single live birth; Z30.2 Encounter for sterilization
CPT/HCPCS: 85025; 85027; 86850; 86900; 86901; 99218; 99251; J7120; A4216; G0378; G0463